=== PATIENT | male | born 1955 | race Caucasian/White ===

== ENCOUNTER 2019-09-20 21:43 | Inpatient (IN) | payer BC ==
[~2019-09-20] VITALS: Ht 188 cm; Wt 95.3 kg
--- NOTE | 2019-09-20 22:06 | NUR ---
PT BIBPA. PER PA C/O ABN LAB HGB 5.7 AT FACILITY. UPON ASSESSMENT TACHYCARDIC-130S. PT ON VENT, HAS G TUBE, AND MINIMAL CONVULSION NOTED. RT AT BEDSIDE. PLACED ON MONITOR AND PULSE OX. VSS. NO ACUTE DISTRESS NOTED. AWAITING MD FOR EVAL.
--- NOTE | 2019-09-20 22:15 | NUR ---
AC 16 VT 400 02 40 PEEP 5
[2019-09-20] MEDS ORDERED: IPRATROPIUM NEB FS 0.5 MG/2.5 ML AMPUL.NEB NEB ONE (22:30)
[2019-09-20] MEDS ORDERED: ALBUTEROL FS 2.5 MG/0.5 ML VIAL.NEB NEB ONE (22:30)
--- NOTE | 2019-09-20 22:33 | NUR ---
LAB AT BEDSIDE FOR CULTURES
[2019-09-20] MEDS ORDERED: IPRATROPIUM NEB FS 0.5 MG/2.5 ML AMPUL.NEB ONE (22:36)
[2019-09-20] MEDS ORDERED: ALBUTEROL FS 2.5 MG/0.5 ML VIAL.NEB ONE (22:36)
--- NOTE | 2019-09-20 22:47 | NUR ---
PT RECIEVING BREATHING TREATMENT.
[2019-09-20 22:50] LABS: BASOPHILS # (AUTO) 0.1 /CMM (0.0-0.2); BASOPHILS % (AUTO) 1.1 % (0.0-2.0); EOSINOPHILS % (AUTO) 2.3 % (0.0-6.0); HEMATOCRIT 22 % (39-51); HEMOGLOBIN 7.1 g/dL (13.5-17.5); LYMPHOCYTES # (AUTO) 2.4 /CMM (0.8-4.8); LYMPHOCYTES % (AUTO) 22.4 % (20.0-44.0); MEAN CORPUSCULAR HGB CONC 32 g/dl (31.0-36.0); MEAN CORPUSCULAR VOLUME 88 fL (80-96); MONOCYTES # (AUTO) 0.5 /CMM (0.1-1.30); MONOCYTES % (AUTO) 4.4 % (2.0-12.0); NEUTROPHILS # (AUTO) 7.4 /CMM (1.8-8.9); NEUTROPHILS % (AUTO) 69.8 % (43.0-81.0); PLATELET COUNT (AUTO) 499 /CMM (150-450); RED BLOOD CELL COUNT(AUTO) 2.51 MIL/uL (4.5-6.0); WHITE BLOOD COUNT (AUTO) 10.6 K/uL (4.3-11.0)
[2019-09-20 23:00] LABS: CALCIUM, SERUM 8.7 mg/dL (8.5-10.1); CREATININE 0.6 mg/dL (0.6-1.3); POTASSIUM 4.1 mmol/L (3.5-5.1)
[2019-09-20] MEDS ORDERED: ACETAMINOPHEN 650 MG/SUPP.RECT RC ONE (23:00)
[2019-09-20] MEDS ORDERED: IV NS 0.9% 1,000 ML BAG IV ONE (23:00)
[2019-09-20 23:06] LABS: ALBUMIN 1.6 g/dL (3.4-5.0); BILIRUBIN,TOTAL 0.2 mg/dL (0.2-1.0); TOTAL PROTEIN, SERUM 7.9 g/dL (6.4-8.2)
[2019-09-20] MEDS ORDERED: LORAZEPAM INJ 2 MG/ML VIAL ONE (23:18)
[2019-09-20] MEDS ORDERED: LORAZEPAM INJ 2 MG/ML VIAL IV ONE (23:30)
[2019-09-21] VITALS (7 sets, daily range): BP systolic 105–134; BP diastolic 54–81
--- NOTE | 2019-09-21 00:14 | NUR ---
ER TALKING TO [facility] REGARD[facility] PT ADMISSION.
--- NOTE | 2019-09-21 00:31 | NUR ---
TELE 116-1
--- NOTE | 2019-09-21 00:39 | NUR ---
REPORT GIVEN TO KEYLA MARTINEZ
[2019-09-21] MEDS ORDERED: Z GUARD REMEDY 2 OZ OINT TP PRN (01:00)
[2019-09-21] MEDS ORDERED: MAG HYDROX/AL HYDROX/SIMETH 30 ML UDC PO PRN (01:00)
[2019-09-21] MEDS ORDERED: MAGNESIUM HYDROXIDE 30 ML UDC PO PRN (01:00)
[2019-09-21] MEDS ORDERED: LORAZEPAM INJ 2 MG/ML VIAL IV PRN (01:00)
[2019-09-21] MEDS ORDERED: HYDROCODONE/APAP 5/325MG 1 EACH TABLET PO PRN (01:00)
[2019-09-21] MEDS ORDERED: MORPHINE SULFATE INJ 2 MG/ML DISP.SYRIN IV PRN (01:00)
[2019-09-21] MEDS ORDERED: ACETAMINOPHEN 325 MG TABLET PO PRN (01:00)
[2019-09-21] MEDS ORDERED: ONDANSETRON HCL/PF 4 MG/2 ML VIAL IVP PRN (01:00)
[2019-09-21] MEDS ORDERED: ZOLPIDEM TARTRATE 5 MG TABLET PO PRN (01:00)
--- NOTE | 2019-09-21 01:15 | NUR ---
BOND ANALYST OPENING NOTE PATIENT ARRIVED TO UNIT FROM ER AT THIS TIME VIA GURNEY. PATIENT IS OBTUNDED. VENT DEPENDANT. BREATHING EVEN AND NON LABORED. NO SOB NOTED AT THIS TIME. ON MAN. PATIENT HAS MULTIPLE PRESSURE SORES NOTED ON BILATERAL HEELS, BACK OF HEAD, SACRUM, RIGHT LOWER LEG, AND RIGHT GROIN AREA. WOUND DRESSING CHANGES DONE. IN NO APPARENT DISTRESS NOTED AT THIS TIME. BED IS LOWERED TO LOW POSITION FOR SAFETY. WILL CONTINUE TO MONITOR.
--- NOTE | 2019-09-21 01:18 | NUR ---
PT TRANSFERED PER ACLS PROTOCOL
[2019-09-21] MEDS: IV D5/0.45 NACL 1,000 ML IV PRN ×2 (02:28→15:29)
--- NOTE | 2019-09-21 03:21 | NUR ---
RT NOTE PATIENT RECEIVED IN STABLE CONDITION. PATIENT TOLERATING CURRENT ORDERED VENT SETTINGS, NO SIGNS OF RESPIRATORY DISTRESS NOTED. ALARMS ARE SET AND AUDIBLE. TRACH IS PATENT AND SECURE. MECHANICAL VENT IS PLUGGED INTO RED OUTLET. EMERGENCY EQUIPMENT AT PATIENT BEDSIDE. WILL CONTINUE TO MONITOR PATIENT
--- NOTE | 2019-09-21 06:40 | NUR ---
INTERFACE DEVELOPER CLOSING NOTE PATIENT IS IN BED RESTING WITH HOB ELEVATED. PATIENT IS NON VERBAL. ON VENT. PATIENT IS KEPT NPO ORDERED. IV HYDRATION ON AND RUNNING. RIGHT UPPER ARM PICC LINE KEPT PATENT. PATIENT IS KEPT CLEAN, DRY, AND COMFORTABLE. WILL ENDORSE TO AM SHIFT RN FOR CONTINUATION OF CARE.
--- NOTE | 2019-09-21 07:15 | NUR ---
RN OPENING NOTES PATIENT IS IN BED RESTING WITH HOB ELEVATED. PATIENT IS NON VERBAL ON VENT WITH O2 SATURATION AT 95%. PATIENT IS NPO ORDERED. RECEIVED REPORT FROM RADIOLOGY PHYSICIAN ASSISTANT RN WILL CONTINUE TO MONITOR.
[2019-09-21 07:24] LABS: BASOPHILS % (AUTO) 0.4 % (0.0-2.0); EOSINOPHILS % (AUTO) 1.3 % (0.0-6.0); HEMATOCRIT 22 % (39-51); HEMOGLOBIN 7.2 g/dL (13.5-17.5); LYMPHOCYTES # (AUTO) 1.4 /CMM (0.8-4.8); LYMPHOCYTES % (AUTO) 16.1 % (20.0-44.0); MEAN CORPUSCULAR HGB CONC 33 g/dl (31.0-36.0); MEAN CORPUSCULAR VOLUME 87 fL (80-96); MONOCYTES # (AUTO) 0.5 /CMM (0.1-1.30); NEUTROPHILS # (AUTO) 6.8 /CMM (1.8-8.9); NEUTROPHILS % (AUTO) 76.2 % (43.0-81.0); PLATELET COUNT (AUTO) 429 /CMM (150-450); RED BLOOD CELL COUNT(AUTO) 2.53 MIL/uL (4.5-6.0); WHITE BLOOD COUNT (AUTO) 8.9 K/uL (4.3-11.0)
[2019-09-21 07:44] LABS: BILIRUBIN,TOTAL 0.2 mg/dL (0.2-1.0); CALCIUM, SERUM 8.6 mg/dL (8.5-10.1); CREATININE 0.6 mg/dL (0.6-1.3); MAGNESIUM 2.1 mg/dL (1.8-2.4); PHOSPHORUS 2.8 mg/dL (2.5-4.9); POTASSIUM 3.7 mmol/L (3.5-5.1); TOTAL PROTEIN, SERUM 7.1 g/dL (6.4-8.2)
[2019-09-21 07:48] LABS: ALBUMIN 1.3 g/dL (3.4-5.0)
[2019-09-21 07:49] LABS: THYROID STIMULATING HORMONE 1.137 uIU/mL (0.358-3.74)
[2019-09-21] MEDS: PANTOPRAZOLE 40 MG VIAL IV SCH (08:37)
[2019-09-21] MEDS: LORAZEPAM INJ 2 MG/ML VIAL IV PRN (08:47)
[2019-09-21] MEDS ORDERED: MERO500V3 IV (09:19)
[2019-09-21] MEDS ORDERED: MULT-439 GT (09:19)
[2019-09-21] MEDS ORDERED: AMIN887L GT (09:19)
[2019-09-21] MEDS ORDERED: NUT.237L31 (09:19)
[2019-09-21] MEDS ORDERED: VANC1FRO2 IV (09:19)
[2019-09-21] MEDS ORDERED: ACET-868 GT (09:19)
[2019-09-21] MEDS ORDERED: BISA10SU11 RC (09:19)
[2019-09-21] MEDS ORDERED: ALBU2.5V13 IH (09:19)
[2019-09-21] MEDS ORDERED: NUTR1PAC14 GT (09:19)
[2019-09-21] MEDS ORDERED: CRAN3875 GT (09:19)
[2019-09-21] MEDS ORDERED: CHLO473M3 MM (09:19)
[2019-09-21] MEDS ORDERED: AMLO10TA4 GT (09:19)
[2019-09-21] MEDS ORDERED: INSU100V39 SQ (09:19)
[2019-09-21] MEDS ORDERED: ACET-2030 GT (09:19)
[2019-09-21] MEDS ORDERED: MAGN400O6 GT (09:19)
[2019-09-21] MEDS ORDERED: LEVE100S GT (09:19)
[2019-09-21] MEDS ORDERED: ALBU2.5V38 IH (09:19)
[2019-09-21] MEDS ORDERED: POLY17PO4 GT (09:19)
[2019-09-21] MEDS ORDERED: ASCO500C16 GT (09:19)
[2019-09-21] MEDS ORDERED: FAMO20TA8 GT (09:19)
[2019-09-21] MEDS ORDERED: VALP250S4 GT (09:19)
[2019-09-21] MEDS ORDERED: SENN-168 GT (09:19)
[2019-09-21] MEDS ORDERED: NA P133E RC (09:19)
[2019-09-21] MEDS ORDERED: ACET325T53 GT (09:19)
[2019-09-21] MEDS ORDERED: DOCU-141 GT (09:19)
[2019-09-21 11:59] LABS: APPEARANCE,URINE CLEAR (CLEAR); BILIRUBIN,URINE NEGATIVE (NEGATIVE); BLOOD, URINE NEGATIVE Ery/uL (NEGATIVE); COLOR,URINE YELLOW (YELLOW); KETONES,URINE NEGATIVE (NEGATIVE); LEUKOCYTE ESTERASE ,URINE NEGATIVE (NEGATIVE); NITRITE, URINE NEGATIVE (NEGATIVE); PROTEIN,URINE NEGATIVE (NEGATIVE); UGLUCOSE NEGATIVE (NEGATIVE); UROBILINOGEN,URINE 0.2 EU/dL (0.2)
[2019-09-21] MEDS ORDERED: POLYETHYLENE GLYCOL 3350 17 GM POWD.PACK GT PRN (13:00)
[2019-09-21] MEDS ORDERED: NA PHOS,M-B/NA PHOS,DI-BA 1 EA ENEMA RC PRN (13:00)
[2019-09-21] MEDS ORDERED: ACETAMINOPHEN 325 MG TABLET MC PRN (13:00)
[2019-09-21] MEDS ORDERED: MAGNESIUM HYDROXIDE 30 ML UDC GT PRN ×2 (13:00→13:16)
[2019-09-21] MEDS ORDERED: BISACODYL SUPP (10 MG) 10 MG/SUPP.RECT SUPP.RECT RC PRN (13:00)
[2019-09-21] MEDS ORDERED: ZOLPIDEM TARTRATE 5 MG TABLET GT PRN (13:14)
[2019-09-21] MEDS ORDERED: MAG HYDROX/AL HYDROX/SIMETH 30 ML UDC GT PRN (13:15)
[2019-09-21] MEDS ORDERED: HYDROCODONE/APAP 5/325MG 1 EACH TABLET GT PRN (13:16)
[2019-09-21] MEDS: VALPROIC ACID 250 MG/5 ML UDC GT SCH ×2 (13:28→16:31)
[2019-09-21] MEDS: ACETAMINOPHEN 650 MG/20.3 ML UDC PO PRN ×2 (13:35→21:23)
[2019-09-21] MEDS ORDERED: FEE PK DOSING 1 MIN EA MC ONE (13:50)
[2019-09-21] MEDS ORDERED: GLUCERNA 1.2 1,000 ML BOTTLE NG PRN (14:00)
[2019-09-21] MEDS: ALBUTEROL FS 2.5 MG/3 ML VIAL.NEB IH PRN (14:23)
[2019-09-21] MEDS: ALBUTEROL FS 2.5 MG/0.5 ML VIAL.NEB IH SCH ×2 (14:23→19:48)
[2019-09-21] MEDS ORDERED: PIPERACILLIN /TAZOBACTAM 3.375 G in IV D5W 50 ML IV ONE (15:00)
[2019-09-21] MEDS: VANCOMYCIN 1.25 GM in IV D5W 250 ML IV SCH (16:30)
[2019-09-21] MEDS: CHLORHEXIDINE GLUCONATE 15 ML UDC MM SCH (16:30)
[2019-09-21] MEDS: LEVETIRACETAM SOL (5 ML) 100 MG/ML UDC GT SCH (16:31)
[2019-09-21] MEDS ORDERED: Medication Not On Formulary EA (Cran/Vitc/Mannose/Inulin/Brom (Uti-Stat Liquid) 30 ML) GT SCH (17:00)
[2019-09-21] MEDS ORDERED: ARGININE/GLUTAMINE/CALCIUM BMB 1 EACH POWD.PACK GT SCH (17:00)
--- NOTE | 2019-09-21 17:27 | NUR ---
RT NOTE RECEIVED PATIENT ON MECHANICAL VENT WITH ORDERED SETTING. ALARMS ON AND AUDIBLE. VENT PLUGGED IN TO RED OUTLET. TRACH TUBE IN PLACE PATENT AND SECURED WITH TRACH TIE. AMBU BAG AND BACK UP TRACH BY THE BEDSIDE. SX COPIOUS AMOUNT OF THICK YELLOW SECRETIONS. NO RESP DISTRESS AT THIS TIME. WILL CONTINUE TO MONITOR.
--- NOTE | 2019-09-21 19:29 | NUR ---
RN CLOSING NOTES PATIENT IS IN BED RESTING WITH HOB ELEVATED. PATIENT IS NON VERBAL ON VENT WITH O2 SATURATION AT 100%. PATIENT IS RECEIVING G-TUBE FEEDING CURRENTLY ON 30 MLS/HR ORDERED. PT ON A AIR MATTRESS AND MAN DRAINING TO GRAVITY.REPORT GIVEN TO QUALITY ENG RN FOR MOISES.
--- NOTE | 2019-09-21 19:30 | NUR ---
DIRECTOR OF PLACEMENT CLOSING NOTE PATIENT IS IN BED RESTING OBTUNDED WITH HOB ELEVATED. ON VENT AC SETTINGS WELL TOLERATED BY PTS NO SOB NO DISTRESS NOTED ,BREATHING EVEN AND UNLABORED PATIENT IS KEPT NPO ORDERED. IV HYDRATION ON AND RUNNING. RIGHT UPPER ARM PICC LINE KEPT PATENT. PATIENT IS KEPT CLEAN, DRY, AND COMFORTABLE. F/C INTACT AND PATENT DRAINING WITH YELLOWISH URINE OUTPUT , ALL DUE MEDS GIVEN ASD ORDERED, NO ASE NOTED , GT FEEDING OF GLUCERNA 1.2 AT 30CC/HR INFUSING TOLERATING WELL NO RESIDUAL NOTED . V/S STABLE AFEBRILE , TURN AND REPOSITION Q 2HRS ,SUCTION SECRETION DONE, HOB ELEVATED AT ALL TIMES FOR ASPIRATION PRECAUTION .WILL CONTINUE TO MONITOR PTS . Addendum: 09/22/19 at 0630 by JOSE RAFAEL HINOJOSA RN DIRECTOR OF PLACEMENT OPENING NOTES NOT CLOSING NOTES. Addendum: 09/22/19 at 0638 by JOSE RAFAEL HINOJOSA RN THIS IS DIRECTOR OF PLACEMENT OPENING NOTES NOT TELE CLOSING NOTES
[2019-09-21] MEDS: SENNOSIDES 8.6 MG TABLET GT SCH (21:22)
[2019-09-21] MEDS: PIPERACILLIN /TAZOBACTAM 3.375 G in IV D5W 100 ML IV SCH (21:23)
[2019-09-22] VITALS (12 sets, daily range): BP systolic 98–117; BP diastolic 68–82
[2019-09-22] MEDS: ALBUTEROL FS 2.5 MG/0.5 ML VIAL.NEB IH SCH ×4 (01:31→19:38)
[2019-09-22] MEDS: VANCOMYCIN 1.25 GM in IV D5W 250 ML IV SCH ×2 (04:10→16:25)
--- NOTE | 2019-09-22 04:54 | NUR ---
RT NOTE Pt rec'd trached on [facility] vent on AC mode. Pt shows no signs of resp distress or sob. Trach is patent and secured. Pt sx'd for mod amt of pale yellow secretions. Alarms are set and audible. Vent plugged into red outlet. Ambu bag bedside. Will continue to monitor. Addendum: 09/22/19 at 0454 by NAHUM GUO RT Amended: Links added.
[2019-09-22] MEDS: PIPERACILLIN /TAZOBACTAM 3.375 G in IV D5W 100 ML IV SCH ×3 (05:10→22:13)
--- NOTE | 2019-09-22 06:38 | NUR ---
FUNERAL SERVICE APPRENTICE NOTES PTS REMAINS ON VENTILATOR WELL TOLERATED , NO SOB NO DISTRESS NOTED , NO MOISES NOTED AT THIS TIME V/S STABLE AFEBRILE, WILL ENDORSE TO RN DAY SHIFT FOR CONTINUITY OF CARE.
[2019-09-22 07:35] LABS: BASOPHILS % (AUTO) 0.3 % (0.0-2.0); EOSINOPHILS % (AUTO) 2.2 % (0.0-6.0); LYMPHOCYTES # (AUTO) 1.1 /CMM (0.8-4.8); LYMPHOCYTES % (AUTO) 10.6 % (20.0-44.0); MEAN CORPUSCULAR HGB CONC 32 g/dl (31.0-36.0); MEAN CORPUSCULAR VOLUME 87 fL (80-96); MONOCYTES # (AUTO) 0.4 /CMM (0.1-1.30); MONOCYTES % (AUTO) 3.8 % (2.0-12.0); NEUTROPHILS # (AUTO) 8.6 /CMM (1.8-8.9); NEUTROPHILS % (AUTO) 83.1 % (43.0-81.0); PLATELET COUNT (AUTO) 364 /CMM (150-450); RED BLOOD CELL COUNT(AUTO) 2.13 MIL/uL (4.5-6.0); WHITE BLOOD COUNT (AUTO) 10.3 K/uL (4.3-11.0)
[2019-09-22 08:01] LABS: HEMATOCRIT 19 % (39-51)
[2019-09-22 08:05] LABS: CALCIUM, SERUM 8.1 mg/dL (8.5-10.1); CREATININE 0.7 mg/dL (0.6-1.3); POTASSIUM 3.5 mmol/L (3.5-5.1)
[2019-09-22] MEDS: FAMOTIDINE (20 MG) 20 MG TABLET GT SCH (08:49)
[2019-09-22] MEDS: CHLORHEXIDINE GLUCONATE 15 ML UDC MM SCH ×2 (08:49→17:48)
[2019-09-22] MEDS: PANTOPRAZOLE 40 MG VIAL IV SCH (08:49)
[2019-09-22] MEDS: PROSOURCE / PROSTAT (PYXIS) 30 ML UDC GT SCH (08:49)
[2019-09-22] MEDS: DOCUSATE SODIUM LIQ 100 MG/10 ML UDC GT SCH (08:49)
[2019-09-22] MEDS: MULTIVIT W/MINERALS 1 TAB TABLET GT SCH (08:49)
[2019-09-22] MEDS: ASCORBIC ACID 500 MG TABLET GT SCH (08:49)
[2019-09-22] MEDS: LEVETIRACETAM SOL (5 ML) 100 MG/ML UDC GT SCH ×2 (08:50→17:49)
[2019-09-22] MEDS: VALPROIC ACID 250 MG/5 ML UDC GT SCH ×3 (08:50→17:49)
[2019-09-22] MEDS: ACETAMINOPHEN 650 MG/20.3 ML UDC GT SCH (08:50)
[2019-09-22] MEDS: SILVER SULFADIAZINE CREAM 25 GM TUBE TP SCH (08:51)
[2019-09-22] MEDS ORDERED: DOCUSATE SODIUM 100 MG CAPSULE PO SCH (09:00)
[2019-09-22] MEDS ORDERED: ACETAMINOPHEN 325 MG TABLET MC SCH (09:00)
[2019-09-22] MEDS: IV D5/0.45 NACL 1,000 ML IV PRN (09:10)
[2019-09-22 10:17] LABS: EOSINOPHILS % (MANUAL) 5 % (0-4); LYMPHOCYTES % (MANUAL) 11 % (16-48); MONOCYTES % (MANUAL) 5 % (0-11.0); NEUTROPHILS % (MANUAL) 79 (42-76)
--- NOTE | 2019-09-22 16:45 | NUR ---
RN NOTE: SisterSusi was at the bedside and informed her about the update regarding the patient's condition and plan of care. She was requesting for a special mattress that has an alternating pressure. Patient was currently on [facility] 1st mattress and pending wound consultation. Informed consent for the serial debridement of the (B) heels were signed by the sisterSusi. Informed consent filed to patient's chart.
--- NOTE | 2019-09-22 17:30 | NUR ---
RN NOTE: Occult blood stool was sent to lab per MD order.
--- NOTE | 2019-09-22 19:21 | NUR ---
RN NOTE: Bedside report was given to JUAN Beltran for continuity of care. Patient was s/p 1 unit blood transfusion of PRBC per Dr. Rodriguez's order. AM labs were ordered for tomorrow.
--- NOTE | 2019-09-22 19:30 | NUR ---
AIR CREW SUPERVISOR NOTES PATIENT IS IN BED RESTING OBTUNDED WITH HOB ELEVATED. ON VENT AC SETTINGS WELL TOLERATED BY PTS NO SOB NO DISTRESS NOTED ,BREATHING EVEN AND UNLABORED PATIENT IS KEPT NPO ORDERED. IV HYDRATION ON AND RUNNING. RIGHT UPPER ARM PICC LINE KEPT PATENT. PATIENT IS KEPT CLEAN, DRY, AND COMFORTABLE. F/C INTACT AND PATENT DRAINING WITH YELLOWISH URINE OUTPUT , ALL DUE MEDS GIVEN ASD ORDERED, NO ASE NOTED , INCREASE GT FEEDING OF GLUCERNA 1.2 AT 40CC/HR INFUSING TOLERATING WELL NO RESIDUAL NOTED . V/S STABLE ,WILL CONTINUE TO MONITOR PT.
[2019-09-22 20:17] LABS: OCCULT BLOOD STOOL NEGATIVE (NEGATIVE)
[2019-09-22] MEDS: SENNOSIDES 8.6 MG TABLET GT SCH (22:13)
[2019-09-22] MEDS: GLUCERNA 1.2 1,000 ML BOTTLE NG PRN (22:20)
[2019-09-23] VITALS (13 sets, daily range): BP systolic 108–141; BP diastolic 2–91
--- NOTE | 2019-09-23 | NUR ---
ASPHALT LAYER NOTES SPUTUM CX ,AND RAPID INFLUENZA SPECIMEN COLLECTED ORDERED , LABORATORY CALLUM MADE AWARE TO RESEARCH PROGRAM COORDINATOR SPECIMEN .ORDER NOTED AND CARRIED OUT. GT FEEDING GLUCERNA 1.2 INCREASE TO 60CC/HR WILL TOLERATED NO RESIDUAL NOTED. WILL CONTINUE TO MONITOR PT.
[2019-09-23] MEDS: ALBUTEROL FS 2.5 MG/0.5 ML VIAL.NEB IH SCH ×4 (01:44→19:49)
[2019-09-23] MEDS: VANCOMYCIN 1.25 GM in IV D5W 250 ML IV SCH (03:28)
[2019-09-23] MEDS: PIPERACILLIN /TAZOBACTAM 3.375 G in IV D5W 100 ML IV SCH ×3 (05:14→23:31)
--- NOTE | 2019-09-23 06:32 | NUR ---
STEAM CLEAN MACHINE OPERATOR NOTES PTS REMAINS ON VENTILATOR WELL TOLERATED NO SOB NO DISTRESS NOTED SPECIMEN FOR SACRLAL WOUND CULTURE COLLECTED , PTS IS STABLE AFEBRILE CONT ON GT FEEDING WELL TOLERATED INFUSING WELL NO RESIDUAL NOTED.WILL ENDORSE TO RN DAY SHIFT FOR CONTINUITY OF CARE.
--- NOTE | 2019-09-23 08:00 | NUR ---
RN NOTES RECEIVED PATIENT IS IN BED, OBTUNDED WITH HOB ELEVATED. PATIENT HAS JITTERY MOVEMENT ON UPPER ABDOMEN, ON VENT AC SETTINGS WELL TOLERATED BY PTS NO SOB NO DISTRESS NOTED ,BREATHING EVEN AND UNLABORED . IV HYDRATION ON RIGHT UA PICC LINE INTACT D51/2 NS AT 75 ML/HR RUNNING. PATIENT IS KEPT CLEAN, DRY, AND COMFORTABLE. F/C INTACT AND PATENT DRAINING WITH YELLOWISH URINE OUTPUT , ALL DUE MEDS GIVEN VIA GT INTACT, RESIDUAL AND PLACEMENT CHECKED. GT FEEDING OF GLUCERNA 1.2 AT 65 CC/HR INTACT CC/HR INFUSING TOLERATING, NO RESIDUAL NOTED . V/S STABLE AFEBRILE , TURN AND REPOSITION Q 2HRS ,SUCTION SECRETION DONE, HOB ELEVATED AT ALL TIMES FOR ASPIRATION PRECAUTION .WILL CONTINUE TO MONITOR.
[2019-09-23 08:54] LABS: CALCIUM, SERUM 8.1 mg/dL (8.5-10.1); CREATININE 0.6 mg/dL (0.6-1.3); MAGNESIUM 1.9 mg/dL (1.8-2.4); PHOSPHORUS 3.3 mg/dL (2.5-4.9)
[2019-09-23] MEDS: VALPROIC ACID 250 MG/5 ML UDC GT SCH ×3 (10:08→17:54)
[2019-09-23] MEDS: DOCUSATE SODIUM LIQ 100 MG/10 ML UDC GT SCH (10:09)
[2019-09-23] MEDS: CHLORHEXIDINE GLUCONATE 15 ML UDC MM SCH ×2 (10:14→17:54)
[2019-09-23] MEDS: PANTOPRAZOLE 40 MG VIAL IV SCH (10:14)
[2019-09-23] MEDS: ACETAMINOPHEN 650 MG/20.3 ML UDC GT SCH (10:14)
[2019-09-23] MEDS: LEVETIRACETAM SOL (5 ML) 100 MG/ML UDC GT SCH ×2 (10:14→17:54)
[2019-09-23] MEDS: MULTIVIT W/MINERALS 1 TAB TABLET GT SCH (10:15)
[2019-09-23] MEDS: FAMOTIDINE (20 MG) 20 MG TABLET GT SCH (10:15)
[2019-09-23] MEDS: ASCORBIC ACID 500 MG TABLET GT SCH (10:15)
[2019-09-23] MEDS: PROSOURCE / PROSTAT (PYXIS) 30 ML UDC GT SCH (10:17)
[2019-09-23] MEDS: SILVER SULFADIAZINE CREAM 25 GM TUBE TP SCH (10:18)
[2019-09-23] MEDS: IV D5/0.45 NACL 1,000 ML IV PRN (10:46)
[2019-09-23 16:20] LABS: BASOPHILS % (AUTO) 0.4 % (0.0-2.0)
[2019-09-23 16:25] LABS: EOSINOPHILS % (AUTO) 3.6 % (0.0-6.0); LYMPHOCYTES # (AUTO) 1.2 /CMM (0.8-4.8); LYMPHOCYTES % (AUTO) 18.5 % (20.0-44.0); MEAN CORPUSCULAR HGB CONC 33 g/dl (31.0-36.0); MEAN CORPUSCULAR VOLUME 86 fL (80-96); MONOCYTES # (AUTO) 0.4 /CMM (0.1-1.30); MONOCYTES % (AUTO) 5.5 % (2.0-12.0); NEUTROPHILS # (AUTO) 4.7 /CMM (1.8-8.9); PLATELET COUNT (AUTO) 314 /CMM (150-450); WHITE BLOOD COUNT (AUTO) 6.6 K/uL (4.3-11.0)
[2019-09-23 16:34] LABS: HEMATOCRIT 18 % (39-51)
--- NOTE | 2019-09-23 16:40 | NUR ---
rn notes get call from lab critical hemoglobin 6.0, and hematocrit 18, called Dr Rodriguez and get order STAT 2.0 units of TST RBC. ORDER TAKEN AND CARRIED OUT.
[2019-09-23] MEDS: VANCOMYCIN 1 GM in IV D5W 250 ML IV SCH (17:55)
--- NOTE | 2019-09-23 17:55 | NUR ---
rn notes vancomycin not administered because vancomycin through , administered scheduled medications via GT 75ml/hr intact, HOB keep elevated for aspiration precaution, assist patient turn and reposition q 2 hr.
[2019-09-23] MEDS: LORAZEPAM INJ 2 MG/ML VIAL IV PRN (18:28)
--- NOTE | 2019-09-23 18:28 | NUR ---
rn notes administered ativan 0.5 mg/ml iv push for upper body jitteriness movement, v/s taken bp-118/67, p-96, continued monitoring.
--- NOTE | 2019-09-23 18:30 | NUR ---
RN NOTES PATIENT IN THE BED, MEDICATION WERE ADMINISTERED FOR JITTERINESS MOVEMENT EFFECTIVE, V/S STABLE. ASSIST PATIENT TURN AND REPOSTION Q 2 HR, ELEVATED LOWER EXTREMITIES AND ARMS BECAUSE OF SWOLLEN USING PILLOWS. INFUSING GLUCERNA 1.2 80 ML/HR INTACT, HOB ELEVATED FOR ASPIRATION PRECAUTION, INFUSING ZOSYN 25 ML/HR ON RIGHT PICC LINE INTACT, ASSIST TURN AND REPOSTION Q 2 HR. ENDORSED ONCOMING NURSE FOLLOW PLAN OF CARE.
[2019-09-23] MEDS: GLUCERNA 1.2 1,000 ML BOTTLE NG PRN (18:36)
[2019-09-23 19:39] LABS: EOSINOPHILS % (MANUAL) 6 % (0-4); LYMPHOCYTES % (MANUAL) 14 % (16-48); MONOCYTES % (MANUAL) 3 % (0-11.0); NEUTROPHILS % (MANUAL) 77 (42-76)
--- NOTE | 2019-09-23 20:31 | NUR ---
RN NOTES, PATIENT IN BED, ON MECHANICAL VENTILATOR , TOLERATED SETTINGS WELL, WITH STABLE VS, ORDER O INFUSED BLOOD AND BLOOD STARTED AT THIS TIME, PATIENT TOLERATED WELL, WILL ADMINISTER PROTOCOL VIA DICKSON PICC LINE, GT IN PLACED INFUSING GLUCERNA 1.2 80 ML/HR, MINIMAL RESIDUA NOTED, HOB ELEVATED FOR ASPIRATION PRECAUTION, REPOSITIONED AT THIS TIME, ALL SAFETY MEASURES IN PLACED, S/R OF BED ORDERED, NOTED TWITCHING AT THIS TIME AGAIN, INFORMED MEET MORNING SHOW NEWSCAST PRODUCER AND RECEIVED A NEW ORDER FOR ADDITIONAL 1MG ATIVAN IVP NOW, AND F/U IN THE MORNING FOR NEURO CONSULT, ALSO TO CONTINUE INFUSION OF BLOOD AND ATIVAN Q4HRS PREVIOUS ORDER, WILL CONTINUE TO MONITOR CLOSELY.
[2019-09-23] MEDS ORDERED: LORAZEPAM INJ 2 MG/ML VIAL IV ONE (20:37)
[2019-09-23] MEDS: SENNOSIDES 8.6 MG TABLET GT SCH (21:32)
[2019-09-24] VITALS (11 sets, daily range): BP systolic 110–136; BP diastolic 65–91
[2019-09-24] MEDS: LORAZEPAM INJ 2 MG/ML VIAL IV PRN ×3 (00:30→12:48)
[2019-09-24] MEDS: ALBUTEROL FS 2.5 MG/0.5 ML VIAL.NEB IH SCH ×4 (01:19→19:32)
[2019-09-24] MEDS: VANCOMYCIN 1 GM in IV D5W 250 ML IV SCH (06:00)
[2019-09-24] MEDS: PIPERACILLIN /TAZOBACTAM 3.375 G in IV D5W 100 ML IV SCH ×3 (06:20→21:20)
--- NOTE | 2019-09-24 06:41 | NUR ---
RN NOTES, PATIENT IN BED, ON MECHANICAL VENTILATOR , TOLERATED SETTINGS WELL, WITH STABLE, S/P 2 UNITS OF PRBC INFUSED ORDERED, PATIENT TOLERATED WELL, NO MORE TWITCHING THE REST OF THE NIGHT, HOB ELEVATED FOR ASPIRATION PRECAUTION, ALL SAFETY MEASURES IN PLACED, S/R OF BED ORDERED, VANCOMYCIN IV NOT ADMINISTERED DUE TO VANCOMYCIN THROUGH , WILL ENDORSE CONTINUITY OF CARE.
--- NOTE | 2019-09-24 07:37 | NUR ---
RN opening notes Patient received on ventilator, no sob noted, patient shows no s/s of pain at this time. Ventilator plugged to the wall outlet for o2 and power. Glucerna 1.2 @ 30 ml per hour running, goal is for 80 ml per hour. DICKSON picc line, d5 1/2 NS @ 75 ml per hour. Bed at the lowest setting, call light within reach, side rails up x2.
[2019-09-24] MEDS: DOCUSATE SODIUM LIQ 100 MG/10 ML UDC GT SCH (08:07)
[2019-09-24] MEDS: LEVETIRACETAM SOL (5 ML) 100 MG/ML UDC GT SCH ×2 (08:07→16:26)
[2019-09-24] MEDS: VALPROIC ACID 250 MG/5 ML UDC GT SCH ×3 (08:07→16:26)
[2019-09-24] MEDS: PANTOPRAZOLE 40 MG VIAL IV SCH (08:07)
[2019-09-24] MEDS: MULTIVIT W/MINERALS 1 TAB TABLET GT SCH (08:07)
[2019-09-24] MEDS: FAMOTIDINE (20 MG) 20 MG TABLET GT SCH (08:07)
[2019-09-24] MEDS: ACETAMINOPHEN 650 MG/20.3 ML UDC GT SCH (08:07)
[2019-09-24] MEDS: ASCORBIC ACID 500 MG TABLET GT SCH (08:08)
[2019-09-24] MEDS: CHLORHEXIDINE GLUCONATE 15 ML UDC MM SCH ×2 (08:08→16:26)
[2019-09-24] MEDS: PROSOURCE / PROSTAT (PYXIS) 30 ML UDC GT SCH ×3 (08:08→16:26)
[2019-09-24] MEDS: SILVER SULFADIAZINE CREAM 25 GM TUBE TP SCH ×2 (08:08→12:24)
[2019-09-24] MEDS: GLUCERNA 1.2 1,000 ML BOTTLE NG PRN (10:29)
[2019-09-24] MEDS ORDERED: DAKINS QUARTER STRENGTH (0.125%) 480 ML BOTTLE TOP STA (12:13)
[2019-09-24 17:26] LABS: BASOPHILS % (AUTO) 0.3 % (0.0-2.0); EOSINOPHILS % (AUTO) 3.9 % (0.0-6.0); HEMATOCRIT 25 % (39-51); HEMOGLOBIN 8.3 g/dL (13.5-17.5); LYMPHOCYTES # (AUTO) 1.2 /CMM (0.8-4.8); LYMPHOCYTES % (AUTO) 21.1 % (20.0-44.0); MEAN CORPUSCULAR HGB CONC 33 g/dl (31.0-36.0); MEAN CORPUSCULAR VOLUME 86 fL (80-96); MONOCYTES # (AUTO) 0.3 /CMM (0.1-1.30); MONOCYTES % (AUTO) 5.2 % (2.0-12.0); NEUTROPHILS # (AUTO) 3.9 /CMM (1.8-8.9); NEUTROPHILS % (AUTO) 69.5 % (43.0-81.0); PLATELET COUNT (AUTO) 297 /CMM (150-450); RED BLOOD CELL COUNT(AUTO) 2.89 MIL/uL (4.5-6.0); WHITE BLOOD COUNT (AUTO) 5.6 K/uL (4.3-11.0)
[2019-09-24 17:38] LABS: CALCIUM, SERUM 8.4 mg/dL (8.5-10.1); CREATININE 0.5 mg/dL (0.6-1.3); POTASSIUM 3.7 mmol/L (3.5-5.1)
--- NOTE | 2019-09-24 17:59 | NUR ---
rn closing notes Patient remains on a ventilator, portex 7. Glucerna feeding 1.2 @ 80 ml per hour. R UA picc line with D5 1/2 NS@ 75 ml per hour running. Ativan to be given for twitching. Vital signs stable, no sob noted, patient shows no s/s of pain at this time. Hemoglobin level at 8.3 today, no need for a blood transfusion. Bed at the lowest setting, call light within reach, side rails up x2.
[2019-09-24] MEDS: ALBUTEROL FS 2.5 MG/3 ML VIAL.NEB IH PRN (19:31)
--- NOTE | 2019-09-24 19:45 | NUR ---
RN NOTES, PATIENT IN BED, ON MECHANICAL VENTILATOR , TOLERATED SETTINGS WELL, NSR IN TELE MONITOR WITH HR 70S AT THIS TIME, DICKSON PICC LINE IN PLACED, IVF INFUSING ORDERED, PATIENT TOLERATED WELL, GT IN PLACED INFUSING GLUCERNA 1.2 ORDERED, MINIMAL RESIDUAL NOTED, HOB ELEVATED FOR ASPIRATION PRECAUTION, REPOSITIONED AT THIS TIME, F/C IN PLACED DRAINING YELLOW COLOR URINE, DRY AND CLEAN, ALL SAFETY MEASURES IN PLACED, WILL CONTINUE TO MONITOR CLOSELY.
[2019-09-24] MEDS: SENNOSIDES 8.6 MG TABLET GT SCH (21:20)
[2019-09-24] MEDS: IV D5/0.45 NACL 1,000 ML IV PRN (23:54)
[2019-09-25] VITALS (8 sets, daily range): BP systolic 119–141; BP diastolic 72–92
[2019-09-25] MEDS: ALBUTEROL FS 2.5 MG/0.5 ML VIAL.NEB IH SCH ×4 (01:14→19:40)
[2019-09-25] MEDS: LORAZEPAM INJ 2 MG/ML VIAL IV PRN (04:23)
--- NOTE | 2019-09-25 04:25 | NUR ---
RN NOTES, PATIENT NOTED WITH TWITCHING AT THIS TIME, ATIVAN ADMINISTERED ORDERED, WILL CONTINUE TO MONITOR CLOSELY.
[2019-09-25] MEDS: PIPERACILLIN /TAZOBACTAM 3.375 G in IV D5W 100 ML IV SCH ×3 (05:03→21:56)
--- NOTE | 2019-09-25 06:49 | NUR ---
RN NOTES, PATIENT IN BED, ON MECHANICAL VENTILATOR , TOLERATED SETTINGS WELL, PATIENT TOLERATED WELL, NO MORE TWITCHING AFTER ATIVAN ADMINISTERED THIS MORNING, BESIDES THAT NO SIGNIFICANT CHANGE IN CONDITION DURING THE NIGHT, HOB ELEVATED FOR ASPIRATION PRECAUTION, ALL SAFETY MEASURES IN PLACED, S/R OF BED ORDERED, WILL ENDORSE CONTINUITY OF CARE TO ONCOMING NURSE.
[2019-09-25] MEDS ORDERED: SILVER NITRATE APPLICATOR 1 EA BOX TP ONE (07:00)
--- NOTE | 2019-09-25 08:00 | NUR ---
TELE1/RN AM SHIFT OPENING NOTES RECEIVED PT ASLEEP IN BED, PT NON-VERBAL, OCCASIONALLY OPEN EYES. NO ACUTE CHANGE OF CONDITION OR GRIMACING NOTED. PT ON VENTILATOR WITH RATES SET PRESCRIBED, SATURATING @ 95%, RESPIRATIONS EVEN & UNLABORED, LUNG SOUNDS DIMINISHED, SUCTIONED FOR AIRWAY CLEARANCE. WITH ON GOING IV INFUSION OF D51/2NS @ 75CC/HR, PICC LINE, PATENT WITH NO S/S OF INFECTION. GTF FEEDING ON GOING @ 80CC/HR, NO GASTRIC RESIDUAL NOTED, FLUSHED, PATENT. MAN CATHETER INTACT, NOTED WITH YELLOW URINE OUTPUT. PT IS COMFORTABLE, SCHEDULED AM MEDS TO BE GIVEN. CL WITHIN REACHED AND SAFETY MAINTAINED. ON GOING MONITORING.
[2019-09-25 08:23] LABS: CALCIUM, SERUM 8.4 mg/dL (8.5-10.1); CREATININE 0.7 mg/dL (0.6-1.3); POTASSIUM 3.7 mmol/L (3.5-5.1)
[2019-09-25 08:23] LABS: BASOPHILS % (AUTO) 0.6 % (0.0-2.0); EOSINOPHILS % (AUTO) 3.7 % (0.0-6.0); HEMATOCRIT 26 % (39-51); HEMOGLOBIN 8.7 g/dL (13.5-17.5); LYMPHOCYTES # (AUTO) 0.9 /CMM (0.8-4.8); LYMPHOCYTES % (AUTO) 16.9 % (20.0-44.0); MEAN CORPUSCULAR HGB CONC 34 g/dl (31.0-36.0); MEAN CORPUSCULAR VOLUME 86 fL (80-96); MONOCYTES # (AUTO) 0.4 /CMM (0.1-1.30); MONOCYTES % (AUTO) 7.1 % (2.0-12.0); NEUTROPHILS # (AUTO) 3.8 /CMM (1.8-8.9); NEUTROPHILS % (AUTO) 71.7 % (43.0-81.0); PLATELET COUNT (AUTO) 298 /CMM (150-450); RED BLOOD CELL COUNT(AUTO) 3.02 MIL/uL (4.5-6.0); WHITE BLOOD COUNT (AUTO) 5.3 K/uL (4.3-11.0)
[2019-09-25] MEDS: PROSOURCE / PROSTAT (PYXIS) 30 ML UDC GT SCH ×3 (08:43→18:02)
[2019-09-25] MEDS: GLUCERNA 1.2 1,000 ML BOTTLE NG PRN ×2 (08:43→23:27)
[2019-09-25] MEDS: CHLORHEXIDINE GLUCONATE 15 ML UDC MM SCH ×2 (08:43→18:02)
[2019-09-25] MEDS: LEVETIRACETAM SOL (5 ML) 100 MG/ML UDC GT SCH ×2 (08:44→18:02)
[2019-09-25] MEDS: MULTIVIT W/MINERALS 1 TAB TABLET GT SCH (08:44)
[2019-09-25] MEDS: ACETAMINOPHEN 650 MG/20.3 ML UDC GT SCH (08:44)
[2019-09-25] MEDS: FAMOTIDINE (20 MG) 20 MG TABLET GT SCH (08:44)
[2019-09-25] MEDS: VALPROIC ACID 250 MG/5 ML UDC GT SCH ×3 (08:44→18:02)
[2019-09-25] MEDS: DOCUSATE SODIUM LIQ 100 MG/10 ML UDC GT SCH (08:44)
[2019-09-25] MEDS: PANTOPRAZOLE 40 MG VIAL IV SCH (08:45)
[2019-09-25] MEDS: ASCORBIC ACID 500 MG TABLET GT SCH (08:46)
[2019-09-25] MEDS: SILVER SULFADIAZINE CREAM 25 GM TUBE TP SCH ×2 (08:46→08:47)
--- NOTE | 2019-09-25 12:00 | NUR ---
TELE1/RN NOON ROUNDS NO CHANGE OF CONDITION. PT TURNED AND REPOSITIONED. MONITORING CONTINUED.
--- NOTE | 2019-09-25 17:30 | NUR ---
TELE1/RN AFTERNOON ROUNDS PM CARE PROVIDED. NO CHANGE OF CONDITION.
[2019-09-25] MEDS: IV D5/0.45 NACL 1,000 ML IV PRN (18:13)
--- NOTE | 2019-09-25 19:50 | NUR ---
TELE1/RN AM SHIFT CLOSING NOTES ALL NEEDS MET. NO ACUTE CHANGE OF CONDITION NOTED DURING THE SHIFT. PT ENDORSED TO PM NURSE TO CONTINUE CARE. CL WITHIN REACHED AND SAFETY MAINTAINED.
--- NOTE | 2019-09-25 19:50 | NUR ---
DELI COOK NOTES PATIENT IS IN BED RESTING OBTUNDED WITH HOB ELEVATED. ON VENT AC SETTINGS WELL TOLERATED BY PTS NO SOB NO DISTRESS NOTED ,BREATHING EVEN AND UNLABORED .ON TELE MONITOR CURRENT READING SR 70'S-80'S RIGHT UPPER ARM PICC LINE KEPT PATENT.WITH ONGOING D5 1/2 NS @75CC/HR INFUSING WELL, PT ON GLUCERNA @80CC/HR VIA GTUBE, PATENT NO LEAKAGE, RESIDUAL CHECKED @ 20CC PATIENT IS KEPT CLEAN, DRY, AND COMFORTABLE. F/C INTACT AND PATENT DRAINING WITH YELLOWISH URINE OUTPUT SAFETY MEASURED MAINTAINED, BED ON LOWEST POSSIBLE POSITION, SIDE RAILS UP X3, CALL LIGHT WITHIN REACH WILL CONT. TO MONITOR
[2019-09-25] MEDS: SENNOSIDES 8.6 MG TABLET GT SCH (21:56)
[2019-09-26] VITALS (8 sets, daily range): BP systolic 131–140; BP diastolic 85–94
[2019-09-26] MEDS: ALBUTEROL FS 2.5 MG/0.5 ML VIAL.NEB IH SCH ×4 (02:24→20:00)
[2019-09-26] MEDS: PIPERACILLIN /TAZOBACTAM 3.375 G in IV D5W 100 ML IV SCH ×3 (05:24→21:09)
--- NOTE | 2019-09-26 07:18 | NUR ---
RN NOTES, PATIENT IN BED, ON MECHANICAL VENTILATOR , TOLERATED SETTINGS WELL,ON TELE MONITOR READING SR 80'S-90'S PATIENT TOLERATED WELL, NO SIGNIFICANT CHANGE IN CONDITION DURING THE NIGHT, HOB ELEVATED FOR ASPIRATION PRECAUTION, ALL SAFETY MEASURES IN PLACED, S/R OF BED ORDERED, WILL ENDORSE CONTINUITY OF CARE TO ONCOMING NURSE.
[2019-09-26 07:34] LABS: BASOPHILS % (AUTO) 0.3 % (0.0-2.0); EOSINOPHILS % (AUTO) 2.4 % (0.0-6.0); HEMATOCRIT 30 % (39-51); HEMOGLOBIN 9.8 g/dL (13.5-17.5); LYMPHOCYTES # (AUTO) 0.9 /CMM (0.8-4.8); LYMPHOCYTES % (AUTO) 13.9 % (20.0-44.0); MEAN CORPUSCULAR HGB CONC 33 g/dl (31.0-36.0); MEAN CORPUSCULAR VOLUME 86 fL (80-96); MONOCYTES # (AUTO) 0.5 /CMM (0.1-1.30); MONOCYTES % (AUTO) 7.1 % (2.0-12.0); NEUTROPHILS # (AUTO) 5.2 /CMM (1.8-8.9); NEUTROPHILS % (AUTO) 76.3 % (43.0-81.0); PLATELET COUNT (AUTO) 283 /CMM (150-450); RED BLOOD CELL COUNT(AUTO) 3.42 MIL/uL (4.5-6.0); WHITE BLOOD COUNT (AUTO) 6.8 K/uL (4.3-11.0)
--- NOTE | 2019-09-26 07:50 | NUR ---
RN NOTES PATIENT RECEIVED IN BED ON VENTILATOR TOLERATING WELL, BREATHING NORMAL NO SOB NOTED. ON TELE MONITOR READING SR. CONTINUES ON GT FEEDING GLUCERNA 1.2 @ 30ML/HR RUNNING WELL. HOB ELEVATED ALL THE TIMES FOR ASPIRATION PRECAUTIONS. DICKSON PICC LINE D5 1/2 NS @ 75 ML/HR. CALL LIGHT WITHIN REACH. BED LOCKED AND ON LOWEST POSITION, SIDE RAILS UP X2. ALL SAFETY MEASURES IN PLACE. WILL CONTINUE WITH PLAN OF CARE.
[2019-09-26] MEDS: ASCORBIC ACID 500 MG TABLET GT SCH (09:08)
[2019-09-26] MEDS: FAMOTIDINE (20 MG) 20 MG TABLET GT SCH (09:08)
[2019-09-26] MEDS: MULTIVIT W/MINERALS 1 TAB TABLET GT SCH (09:08)
[2019-09-26] MEDS: VALPROIC ACID 250 MG/5 ML UDC GT SCH ×3 (09:12→17:29)
[2019-09-26] MEDS: LEVETIRACETAM SOL (5 ML) 100 MG/ML UDC GT SCH ×2 (09:12→17:30)
[2019-09-26] MEDS: CHLORHEXIDINE GLUCONATE 15 ML UDC MM SCH ×2 (09:13→17:30)
[2019-09-26] MEDS: ACETAMINOPHEN 650 MG/20.3 ML UDC GT SCH (09:13)
[2019-09-26] MEDS: PANTOPRAZOLE 40 MG VIAL IV SCH (09:13)
[2019-09-26] MEDS: DOCUSATE SODIUM LIQ 100 MG/10 ML UDC GT SCH (09:18)
[2019-09-26] MEDS: SILVER SULFADIAZINE CREAM 25 GM TUBE TP SCH ×2 (09:18→09:19)
[2019-09-26] MEDS: PROSOURCE / PROSTAT (PYXIS) 30 ML UDC GT SCH ×3 (09:22→17:30)
[2019-09-26] MEDS: GLUCERNA 1.2 1,000 ML BOTTLE NG PRN (13:03)
[2019-09-26] MEDS: IV D5/0.45 NACL 1,000 ML IV PRN (13:05)
--- NOTE | 2019-09-26 19:10 | NUR ---
RN OPENING NOTES: RECEIVED PT IN BED, OBTUNDED. ON VENT, TOLERATING SETTINGS WELL. NO DISTRESS NOTED. ON TELE MONITOR SHOWING SR. ON GT FEEDING OF GLUCERNA 1.2 TOLERATING WELL. HAS DICKSON PICC LINE W/ D5 1/2 RUNNING AT 75ML/HR. HAS MAN, PATENT AND DRAINING. BED IN LOWEST AND LOCKED POSITION, CALL LIGHT WITHIN REACH. WILL CONTINUE TO MONITOR.
--- NOTE | 2019-09-26 20:00 | NUR ---
PRODUCT DEVELOPMENT TECHNICIAN NOTES PATIENT IS IN BED RESTING OBTUNDED WITH HOB ELEVATED. ON VENT AC SETTINGS WELL TOLERATED BY PTS NO SOB NO DISTRESS NOTED ,BREATHING EVEN AND UNLABORED PATIENT IS KEPT NPO ORDERED. IV HYDRATION ON AND RUNNING. RIGHT UPPER ARM PICC LINE KEPT PATENT. PATIENT IS KEPT CLEAN, DRY, AND COMFORTABLE. F/C INTACT AND PATENT DRAINING WITH YELLOWISH URINE OUTPUT , ALL DUE MEDS GIVEN ASD ORDERED, NO ASE NOTED , INCREASE GT FEEDING OF GLUCERNA 1.2 AT 80CC/HR INFUSING TOLERATING WELL NO RESIDUAL NOTED . V/S STABLE ,WILL CONTINUE TO MONITOR PT.
--- NOTE | 2019-09-26 20:10 | NUR ---
RN CLOSING NOTES PATIENT IN STABLE CONDITION, NO ACUTE CHANGES TO PATIENT CONDITION DURING MY SHIFT. ALL PATIENT NEEDS MET, PT KEPT CLEAN AND DRY, NO DISTRESS NOTED. ON VENTILATOR WITH SETTINGS TOLERATING WELL. SATURATION AT 100%. FEEDING IS RUNNING ORDERED, TOLERATING WELL, NO RESIDUAL NOTED. MAN REMAINED INTACT. DRAINING URINE. PATIENT SAFETY WAS MAINTAINED, CALL LIGHT WITHIN REACH, ENDORSED TO SLITTER HELPER NURSE TO CONTINUE CARE.
[2019-09-26] MEDS: SENNOSIDES 8.6 MG TABLET GT SCH (21:09)
[2019-09-27] VITALS: BP 131/85
[2019-09-27] MEDS: ALBUTEROL FS 2.5 MG/0.5 ML VIAL.NEB IH SCH ×4 (01:09→20:22)
--- NOTE | 2019-09-27 03:35 | NUR ---
RT NOTE TRANSFERRED PT FROM ROOM 117 T-1 TO 102 T-2 IN [place]. VENTILATOR IS PLUGGED INTO RED OUTLET AND ALARMS ARE SET/ON AND AUDIBLE. AMBUBAG AND B/U TRACH AT BEDSIDE. WILL CONTINUE TO MONITOR.
[2019-09-27] MEDS: IV D5/0.45 NACL 1,000 ML IV PRN ×2 (03:48→22:43)
[2019-09-27 04:00] VITALS: BP 132/80
[2019-09-27] MEDS: GLUCERNA 1.2 1,000 ML BOTTLE NG PRN ×2 (05:08→17:51)
[2019-09-27] MEDS: PIPERACILLIN /TAZOBACTAM 3.375 G in IV D5W 100 ML IV SCH ×2 (05:15→13:38)
--- NOTE | 2019-09-27 05:36 | NUR ---
CAMERA REPAIR TECHNICIAN NOTES PTS REMAINS ON VENTILATOR WELL TOLERATED NO SOB NO DISTRESS NOTED sating 100%, PTS V/S IS STABLE AFEBRILE CONT ON GT FEEDING WELL TOLERATED INFUSING WELL NO RESIDUAL NOTED.ON CONTACT ISOLATION ACINETOBACTER SPUTUM PRECAUTIONARY MEASURES OBSERVED AT ALL TIMES ,ALL NEEDS MEET .KEPT PTS CLEAN DRY AND COMFORTABLE WILL ENDORSE TO RN DAY SHIFT FOR CONTINUITY OF CARE.
[2019-09-27 06:25] LABS: BASOPHILS % (AUTO) 0.2 % (0.0-2.0); HEMATOCRIT 26 % (39-51); HEMOGLOBIN 8.6 g/dL (13.5-17.5); LYMPHOCYTES # (AUTO) 0.9 /CMM (0.8-4.8); LYMPHOCYTES % (AUTO) 14.1 % (20.0-44.0); MEAN CORPUSCULAR HGB CONC 33 g/dl (31.0-36.0); MEAN CORPUSCULAR VOLUME 87 fL (80-96); MONOCYTES # (AUTO) 0.6 /CMM (0.1-1.30); MONOCYTES % (AUTO) 9.3 % (2.0-12.0); NEUTROPHILS # (AUTO) 4.9 /CMM (1.8-8.9); NEUTROPHILS % (AUTO) 74.4 % (43.0-81.0); PLATELET COUNT (AUTO) 280 /CMM (150-450); RED BLOOD CELL COUNT(AUTO) 2.97 MIL/uL (4.5-6.0); WHITE BLOOD COUNT (AUTO) 6.5 K/uL (4.3-11.0)
--- NOTE | 2019-09-27 07:14 | NUR ---
RN OPENING NOTES RECEIVED PATIENT FROM PM NURSE, PATIENT IN STABLE CONDITION.PATIENT IS ON VENTILATOR WITH SETTING ORDERED TOLERATING WELL [id number]%. NO S/S OF RESPIRATORY DISTRESS NOTED. PATIENT OBTUNDED OPENS EYES. ON TELE MONITORING WITH SR RHYTHM NOTED WITH HR- 90'S. PATIENT HAS F/C IN PLACE INTACT DRAINING WELL. PATIENT ON BED WITH MULTIPLE WOUNDS PRESENT KEPT CLEAN AND DRY. CONTINUES ON GT FEEDING TOLERATING WELL NO RESIDUAL NOTED. DICKSON PICC LINE INTACT NO S/S OF INFECTION NOTED FLUSHED WELL. VITAL SIGNS WITHIN NORMAL LIMIT. SAFETY MAINTAINED CALL LIGHT WITHIN REACH. WILL CONT TO MONITOR.
[2019-09-27 08:00] VITALS: BP 128/92
[2019-09-27] MEDS: SILVER SULFADIAZINE CREAM 25 GM TUBE TP SCH ×2 (09:00→09:12)
[2019-09-27] MEDS: CHLORHEXIDINE GLUCONATE 15 ML UDC MM SCH ×2 (09:12→16:29)
[2019-09-27] MEDS: PROSOURCE / PROSTAT (PYXIS) 30 ML UDC GT SCH ×3 (09:12→16:28)
[2019-09-27] MEDS: DOCUSATE SODIUM LIQ 100 MG/10 ML UDC GT SCH (09:13)
[2019-09-27] MEDS: VALPROIC ACID 250 MG/5 ML UDC GT SCH ×3 (09:13→16:29)
[2019-09-27] MEDS: LEVETIRACETAM SOL (5 ML) 100 MG/ML UDC GT SCH ×2 (09:13→16:29)
[2019-09-27] MEDS: ACETAMINOPHEN 650 MG/20.3 ML UDC GT SCH (09:14)
[2019-09-27] MEDS: PANTOPRAZOLE 40 MG VIAL IV SCH (09:14)
[2019-09-27] MEDS: ASCORBIC ACID 500 MG TABLET GT SCH (09:14)
[2019-09-27] MEDS: FAMOTIDINE (20 MG) 20 MG TABLET GT SCH (09:14)
[2019-09-27] MEDS: MULTIVIT W/MINERALS 1 TAB TABLET GT SCH (09:14)
[2019-09-27 12:00] VITALS: BP_SYST 127; BP_DIAS 80; BP_DIAS 88
[2019-09-27 16:00] VITALS: BP 128/84
--- NOTE | 2019-09-27 19:07 | NUR ---
RN ROUNDING NOTES PATIENT CONSENT FORM FOR SERIAL DEBRIDEMENT OF THE SCALP SIGNED OVER THE PHONE BY SISTER (COLETTE ZELAYA). SISTER READ BACK THE CONSENT TO THE WITNESSING NURSE. CONSENT PLACED IN THE CHART. ENDORSED TO TECHNOLOGY SALES REPRESENTATIVE NURSE AND CHARGE NURSE IS AWARE.
--- NOTE | 2019-09-27 19:14 | NUR ---
RN CLOSING NOTES PATIENT REMAINED IN STABLE CONDITION DURING MY SHIFT, NO ACUTE CHANGES TO PATIENT CONDITION DURING THE SHIFT. ALL PATIENT NEEDS MET. ON VENTILATOR WITH SETTINGS ORDERED, NO DISTRESS NOTED AT THE MOMENT. SATURATING WELL @ 100%. VITAL SIGNS WNL. PATIENT CONSENT SIGNED FOR THE SERIA SCALP DEBRIDEMENT AND PLACED IN THE CHART. ALL SCHEDULED MEDICATION GIVEN ORDERED. TF RUNNING, PT TOLERATING WELL. NO RESIDUAL NOTED. CONTACT ISOLATION IS OBSERVED. ALL NEEDS MET, PATIENT KEPT CLEAN AND DRY, WOUND CARE TREATMENT RENDERED ORDERED. SAFETY MAINTAINED, CALL LIGHT WITHIN REACH, ENDORSED TO ROAD OILER NURSE TO CONTINUE CARE.
[2019-09-27 20:00] VITALS: BP 128/89
--- NOTE | 2019-09-27 20:34 | NUR ---
RN OPENING NOTES: RECEIVED PT IN BED, OBTUNDED. ON VENT, TOLERATING SETTINGS WELL.NO SOB , NO DISTRESS NOTEDBREATHING EVEN UNLABORED , ON TELE MONITOR SHOWING SR-ST -100. ON GT FEEDING OF GLUCERNA 1.2 AT 80CC/HR TOLERATING WELL NO RESIDUAL NOTED . HAS DICKSON PICC LINE W/ D5 1/2 RUNNING AT 75ML/HR. HAS MAN, PATENT AND DRAINING. BED IN LOWEST AND LOCKED POSITION, CALL LIGHT WITHIN REACH. WILL CONTINUE TO MONITOR. ON CONTACT ISOLATION ACINETOBACTER SPUTUM ,PRECAUTIONARY MEASURES OBSERVED AT ALL TIMES .KEPT PTS CLEAN DRY AND COMFORTABLE V/S STABLE AFEBRILE.
[2019-09-27] MEDS: SENNOSIDES 8.6 MG TABLET GT SCH (21:05)
[2019-09-28] VITALS: BP 113/69
[2019-09-28] MEDS: ALBUTEROL FS 2.5 MG/0.5 ML VIAL.NEB IH SCH ×4 (01:13→20:24)
[2019-09-28 04:00] VITALS: BP 135/84
--- NOTE | 2019-09-28 05:37 | NUR ---
RT NOTE Pt rec'd trached on [facility] vent on AC mode. Pt shows no signs of resp distress or sob. Trach is patent and secured. Pt sx'd for mod amt of pale yellow secretions. Alarms are set and audible. Vent plugged into red outlet. Ambu bag bedside. Will continue to monitor. Addendum: 09/28/19 at 0537 by NAHUM GUO RT Amended: Links added.
--- NOTE | 2019-09-28 05:45 | NUR ---
AUTOMAT CAR ATTENDANT NOTES PTS REMAINS ON VENTILATOR WELL TOLERATED NO SOB NO DISTRESS NOTED sating 100%, PTS V/S IS STABLE AFEBRILE CONT ON GT FEEDING WELL TOLERATED INFUSING WELL NO RESIDUAL NOTED.ON CONTACT ISOLATION ACINETOBACTER SPUTUM PRECAUTIONARY MEASURES OBSERVED AT ALL TIMES ,ALL NEEDS MEET .KEPT PTS CLEAN DRY AND COMFORTABLE WILL ENDORSE TO RN DAY SHIFT FOR CONTINUITY OF CARE. PTS FOR SERIAL DEBRIDEMENT OF SCALP CONSENT OBTAINED FROM PTS SISTER VALERIA BY DAY SHIFT NURSE.
[2019-09-28 06:48] LABS: BASOPHILS % (AUTO) 0.4 % (0.0-2.0); EOSINOPHILS % (AUTO) 2.6 % (0.0-6.0); HEMATOCRIT 26 % (39-51); HEMOGLOBIN 8.8 g/dL (13.5-17.5); LYMPHOCYTES # (AUTO) 0.8 /CMM (0.8-4.8); LYMPHOCYTES % (AUTO) 12.4 % (20.0-44.0); MEAN CORPUSCULAR HGB CONC 33 g/dl (31.0-36.0); MEAN CORPUSCULAR VOLUME 87 fL (80-96); MONOCYTES # (AUTO) 0.6 /CMM (0.1-1.30); MONOCYTES % (AUTO) 9.3 % (2.0-12.0); NEUTROPHILS % (AUTO) 75.3 % (43.0-81.0); PLATELET COUNT (AUTO) 282 /CMM (150-450); RED BLOOD CELL COUNT(AUTO) 3.05 MIL/uL (4.5-6.0); WHITE BLOOD COUNT (AUTO) 6.6 K/uL (4.3-11.0)
--- NOTE | 2019-09-28 07:37 | NUR ---
RN OPENING NOTES RECEIVED PATIENT RESTING IN BED COMFORTABLY. HE IS OBTUNDED, NON-VERBAL, AND BEDBOUND. HE IS ON MECH VENT VIA PORTEX 7 TRACH, TOLERATING SETTINGS WELL, NO SOB OR RESP DISTRESS NOTED. TELE MONITOR SHOWING SR. PT IS ON CONTACT ISOLATION FOR THE SPUTUM. MAN CATH IS PATENT AND INTACT, DRAINING CLEAR AND YELLOW URINE BY GRAVITY. GTUBE IS PATENT AND INTACT, NO RESIDUALS NOTED. HE IS RECEIVING GLUCERNA AT 50 CC/HR. DICKSON SINGLE LUMEN PICC LINE IS PATENT AND INTACT, INFUSING D5 1/2 NS AT 75 ML/HR. SAFETY MEASURES HAVE BEEN IMPLEMENTED, CALL LIGHT IS WITHIN REACH, BED IS IN LOWEST AND LOCKED POSITION, SIDE RAILS UP X2, WILL CONTINUE TO MONITOR FOR ANY CHANGES.
[2019-09-28 08:00] VITALS: BP 133/90
[2019-09-28] MEDS: CHLORHEXIDINE GLUCONATE 15 ML UDC MM SCH ×2 (08:21→16:44)
[2019-09-28] MEDS: VALPROIC ACID 250 MG/5 ML UDC GT SCH ×3 (08:21→16:44)
[2019-09-28] MEDS: ACETAMINOPHEN 650 MG/20.3 ML UDC GT SCH (08:21)
[2019-09-28] MEDS: MULTIVIT W/MINERALS 1 TAB TABLET GT SCH (08:21)
[2019-09-28] MEDS: PANTOPRAZOLE 40 MG VIAL IV SCH (08:21)
[2019-09-28] MEDS: FAMOTIDINE (20 MG) 20 MG TABLET GT SCH (08:22)
[2019-09-28] MEDS: ASCORBIC ACID 500 MG TABLET GT SCH (08:22)
[2019-09-28] MEDS: LEVETIRACETAM SOL (5 ML) 100 MG/ML UDC GT SCH ×2 (08:22→16:45)
[2019-09-28] MEDS: DOCUSATE SODIUM LIQ 100 MG/10 ML UDC GT SCH (08:22)
[2019-09-28] MEDS: SILVER SULFADIAZINE CREAM 25 GM TUBE TP SCH ×2 (08:23→08:24)
[2019-09-28] MEDS: PROSOURCE / PROSTAT (PYXIS) 30 ML UDC GT SCH ×3 (08:27→16:47)
[2019-09-28] MEDS: GLUCERNA 1.2 1,000 ML BOTTLE NG PRN (10:08)
[2019-09-28 12:00] VITALS: BP 123/80
[2019-09-28] MEDS: IV D5/0.45 NACL 1,000 ML IV PRN (12:06)
--- NOTE | 2019-09-28 15:00 | NUR ---
RN NOTES PATIENT SISTER BROUGHT SUPPLEMENTS THAT SHE WANTS GIVEN TO THE PATIENT. SUPPLEMENTS HAVE BEEN ENTERED INTO MED RECON AND GIVEN TO PHARMACY. SENT MESSAGE TO DR. CURRY TO DO MED RECON, WILL CONTINUE TO MONITOR.
[2019-09-28 16:00] VITALS: BP 132/94
[2019-09-28] MEDS ORDERED: [UNRECOGNIZED DRUG - OTHER] GT (16:03)
[2019-09-28] MEDS ORDERED: [UNRECOGNIZED DRUG - OTHER] GT (16:03)
[2019-09-28] MEDS ORDERED: [UNRECOGNIZED DRUG - OTHER] GT (16:03)
[2019-09-28] MEDS ORDERED: [UNRECOGNIZED DRUG - OTHER] GT (16:03)
[2019-09-28] MEDS ORDERED: [UNRECOGNIZED DRUG - OTHER] (16:03)
[2019-09-28] MEDS ORDERED: [UNRECOGNIZED DRUG - OTHER] GT (16:03)
--- NOTE | 2019-09-28 19:10 | NUR ---
RN CLOSING NOTES PATIENT IS RESTING IN BED COMFORTABLY AT THIS TIME, DOES NOT SHOW ANY S/SX OF RESP DISTRESS OR SOB. HE IS TOLERATING MECH VENT SETTINGS WELL, VSS. PT NEEDS HAVE BEEN MET, VITAL SIGNS ARE STABLE, NO ACUTE CHANGES OCCURRED THROUGHOUT THE SHIFT. SAFETY MEASURES HAVE BEEN IMPLEMENTED, CALL LIGHT IS WITHIN REACH, BED IS IN LOWEST AND LOCKED POSITION, SIDE RAILS UP X2, PT HAS BEEN ENDORSED TO NIGHTSHIFT RN FOR CONTINUITY OF CARE.
--- NOTE | 2019-09-28 19:37 | NUR ---
DIETARY CLERK OPENING NOTES PATIENT RESTING IN BED UPON ARRIVAL. TOLERATING VENT SETTINGS WELL. PATIENT IS OBTUNDED. NO S/S OF ACUTE RESPIRATORY DISTRESS OR PAIN PRESENT. TUBE FEEDING PRESENT WITH GLUCERNA RUNNING AT AT 80 CC/HR. RIGHT UPPER ARM PICC LINE PRESENT, INTACT & PATENT, D5 1/2NS RUNNING AT 75CC/HR. TELE MONITOR READING SINUS TACH, HEART RATE 105. SAFETY MEASURES IN PLACE. BED LOCKED, SIDE RAILS X2, CALL LIGHT WITHIN REACH. WILL CONTINUE TO MONITOR.
[2019-09-28] MEDS: ACETAMINOPHEN 650 MG/20.3 ML UDC PO PRN (19:53)
--- NOTE | 2019-09-28 19:55 | NUR ---
BUS REPAIR SUPERVISOR NOTES PATIENT'S TEMP 101.9. PRN TYLENOL 650MG GIVEN AND COOLING MEASURES INITIATED. WILL CONTINUE TO MONITOR.
[2019-09-28 20:00] VITALS: BP 131/87
[2019-09-28] MEDS: SENNOSIDES 8.6 MG TABLET GT SCH (21:24)
--- NOTE | 2019-09-28 21:52 | NUR ---
ROSTER CLERK NOTES PATIENT'S TEMP 99.5
[2019-09-29] VITALS: BP 142/92
--- NOTE | 2019-09-29 00:25 | NUR ---
RT NOTE Pt rec'd trached on [facility] vent on AC mode. No resp distress or sob noted. Pt sx'd for thick mod amt of pale yellow secretions. Trach is patent and secured. Alarms are set and audible. Vent plugged into red outlet. Ambu bag bedside. Will continue to monitor closely. Addendum: 09/29/19 at 0025 by NAHUM GUO RT Amended: Links added.
[2019-09-29] MEDS: IV D5/0.45 NACL 1,000 ML IV PRN ×2 (01:20→16:32)
[2019-09-29] MEDS: GLUCERNA 1.2 1,000 ML BOTTLE NG PRN ×2 (01:21→18:21)
[2019-09-29] MEDS: ALBUTEROL FS 2.5 MG/0.5 ML VIAL.NEB IH SCH ×5 (01:46→20:31)
[2019-09-29 04:00] VITALS: BP 134/67
[2019-09-29] MEDS: ACETAMINOPHEN 650 MG/20.3 ML UDC PO PRN ×2 (04:34→16:14)
--- NOTE | 2019-09-29 07:31 | NUR ---
RN OPENING NOTES RECEIVED PATIENT RESTING IN BED COMFORTABLY, DOES NOT SHOW ANY S.SX OF DISTRESS OR SOB. PT IS OBTUNDED, NON-VERBAL, AND BEDBOUND. HE IS ON MECH VENT VIA PORTEX 7 TRACH, TOLERATING SETTINGS WELL. TELE MONITOR SHOWING SR WITH HR IN THE 80S. MAN CATH IS PATENT AND INTACT, DRAINING CLEAR AND YELLOW URINE BY GRAVITY. MULTIPLE WOUNDS PRESENT, WILL ADDRESS PER WOUND CARE PLAN. DICKSON SINGLE LUMEN PICC IS PATENT AND INTACT, RUNNING D5 1/2 NS AT 75 ML/HR. GTUBE INTACT, RUNNING GLUCERNA AT 80 ML/HR, NO RESIDUALS NOTED. SAFETY MEASURES HAVE BEEN IMPLEMENTED, CALL LIGHT IS WITHIN REACH, BED IS IN LOWEST AND LOCKED POSITION, SIDE RAILS UP X2, WILL CONTINUE TO MONITOR FOR ANY CHANGES.
[2019-09-29 07:41] LABS: CREATININE 0.6 mg/dL (0.6-1.3); MAGNESIUM 1.7 mg/dL (1.8-2.4); PHOSPHORUS 3.2 mg/dL (2.5-4.9); POTASSIUM 3.8 mmol/L (3.5-5.1)
[2019-09-29 08:00] VITALS: BP 132/88
[2019-09-29] MEDS: PANTOPRAZOLE 40 MG VIAL IV SCH (08:58)
[2019-09-29] MEDS: MULTIVIT W/MINERALS 1 TAB TABLET GT SCH (08:58)
[2019-09-29] MEDS: DOCUSATE SODIUM LIQ 100 MG/10 ML UDC GT SCH (08:58)
[2019-09-29] MEDS: LEVETIRACETAM SOL (5 ML) 100 MG/ML UDC GT SCH ×2 (08:58→16:15)
[2019-09-29] MEDS: VALPROIC ACID 250 MG/5 ML UDC GT SCH ×3 (08:58→16:15)
[2019-09-29] MEDS: ACETAMINOPHEN 650 MG/20.3 ML UDC GT SCH (08:58)
[2019-09-29] MEDS: CHLORHEXIDINE GLUCONATE 15 ML UDC MM SCH ×2 (08:58→16:14)
[2019-09-29] MEDS: FAMOTIDINE (20 MG) 20 MG TABLET GT SCH (08:59)
[2019-09-29] MEDS: ASCORBIC ACID 500 MG TABLET GT SCH (08:59)
[2019-09-29] MEDS: PROSOURCE / PROSTAT (PYXIS) 30 ML UDC GT SCH ×3 (09:02→16:15)
[2019-09-29] MEDS: SILVER SULFADIAZINE CREAM 25 GM TUBE TP SCH ×2 (09:08)
[2019-09-29 09:29] LABS: BASOPHILS % (AUTO) 0.1 % (0.0-2.0); EOSINOPHILS % (AUTO) 1.4 % (0.0-6.0); HEMATOCRIT 28 % (39-51); HEMOGLOBIN 9.4 g/dL (13.5-17.5); LYMPHOCYTES % (AUTO) 14.1 % (20.0-44.0); MEAN CORPUSCULAR HGB CONC 33 g/dl (31.0-36.0); MEAN CORPUSCULAR VOLUME 87 fL (80-96); MONOCYTES # (AUTO) 0.9 /CMM (0.1-1.30); MONOCYTES % (AUTO) 12.6 % (2.0-12.0); NEUTROPHILS # (AUTO) 4.9 /CMM (1.8-8.9); NEUTROPHILS % (AUTO) 71.8 % (43.0-81.0); PLATELET COUNT (AUTO) 269 /CMM (150-450); RED BLOOD CELL COUNT(AUTO) 3.24 MIL/uL (4.5-6.0); WHITE BLOOD COUNT (AUTO) 6.8 K/uL (4.3-11.0)
[2019-09-29 12:00] VITALS: BP 124/87
[2019-09-29] MEDS: Magnesium 1GM/D5W 100ML PREMIX 100 ML IV SCH ×2 (12:07→13:10)
[2019-09-29 12:49] LABS: APPEARANCE,URINE SL CLOUDY (CLEAR); BILIRUBIN,URINE NEGATIVE (NEGATIVE); BLOOD, URINE LARGE Ery/uL (NEGATIVE); COLOR,URINE YELLOW (YELLOW); KETONES,URINE NEGATIVE (NEGATIVE); LEUKOCYTE ESTERASE ,URINE NEGATIVE (NEGATIVE); NITRITE, URINE NEGATIVE (NEGATIVE); PROTEIN,URINE TRACE mg/dl (NEGATIVE); UGLUCOSE NEGATIVE (NEGATIVE)
[2019-09-29 13:45] LABS: BACTERIA,URINE None seen /HPF (None Seen); RBC,URINE TOO NUMEROUS TO COUN /HPF (0-2); SQUAMOUS EPITHELIAL CELL,UR Few /HPF (None Seen); WBC,URINE 0-2 /HPF (0-3)
[2019-09-29 16:00] VITALS: BP_SYST 111; BP_SYST 130; BP_DIAS 69; BP_DIAS 91
--- NOTE | 2019-09-29 19:10 | NUR ---
LABORATORY MONITOR NOTES PATIENT IS IN BED RESTING OBTUNDED WITH HOB ELEVATED. ON VENT AC SETTINGS WELL TOLERATED BY PTS NO SOB NO DISTRESS NOTED ,BREATHING EVEN AND UNLABORED .ON TELE MONITOR CURRENT READING SR 90'S RIGHT UPPER ARM PICC LINE KEPT PATENT.WITH ONGOING D5 1/2 NS @75CC/HR INFUSING WELL, PT ON GLUCERNA @80CC/HR VIA GTUBE, PATENT NO LEAKAGE, RESIDUAL CHECKED @ 20CC PATIENT IS KEPT CLEAN, DRY, AND COMFORTABLE. F/C INTACT AND PATENT DRAINING WITH YELLOWISH URINE OUTPUT SAFETY MEASURED MAINTAINED, BED ON LOWEST POSSIBLE POSITION, SIDE RAILS UP X3, CALL LIGHT WITHIN REACH WILL CONT. TO MONITOR
--- NOTE | 2019-09-29 19:19 | NUR ---
RN CLOSING NOTES PATIENT IS RESTING IN BED COMFORTABLY AT THIS TIME, DOES NOT SHOW ANY S.SX OF RESP DISTRESS OR SOB PRESENT. HE IS ON MECH VENT, TOLERATING SETTINGS WELL. WOUND CARE HAS BEEN DONE. CONTACT ISO HAS BEEN IMPLEMENTED AND ENFORCED. SEIZURE PRECAUTIONS HAVE BEEN IMPLEMENTED. PT NEEDS HAVE BEEN MET, VITAL SIGNS ARE STABLE, NO ACUTE CHANGES OCCURRED THROUGHOUT THE SHIFT. SAFETY MEASURES HAVE BEEN IMPLEMENTED, CALL LIGHT IS WITHIN REACH, BED IS IN LOWEST AND LOCKED POSITION, SIDE RAILS UP X2, PT HAS BEEN ENDORSED TO NIGHTSHIFT RN FOR MOISES.
[2019-09-29 20:00] VITALS: BP 128/78
[2019-09-29] MEDS: SENNOSIDES 8.6 MG TABLET GT SCH (21:25)
[2019-09-30] VITALS (8 sets, daily range): BP systolic 128–144; BP diastolic 64–97
[2019-09-30] MEDS: ACETAMINOPHEN 650 MG/20.3 ML UDC PO PRN (00:25)
[2019-09-30] MEDS: ALBUTEROL FS 2.5 MG/0.5 ML VIAL.NEB IH SCH ×3 (02:10→14:12)
[2019-09-30] MEDS: IV D5/0.45 NACL 1,000 ML IV PRN (06:39)
[2019-09-30] MEDS: GLUCERNA 1.2 1,000 ML BOTTLE NG PRN (06:45)
[2019-09-30 06:46] LABS: CALCIUM, SERUM 8.4 mg/dL (8.5-10.1); CREATININE 0.6 mg/dL (0.6-1.3); PHOSPHORUS 3.2 mg/dL (2.5-4.9); POTASSIUM 3.6 mmol/L (3.5-5.1)
--- NOTE | 2019-09-30 07:24 | NUR ---
CONTRACT ADMINISTRATOR OPENING NOTE PT WAS RECEIVED IN BED AT LOWEST AND LOCKED POSITION WITH SIDE RAILS UPX2, OBTUNDED ON VENT WITH VENT SETTINGS NOTED, ON TELE MONITOR SHOWING ST 100'S, S/P SCALP DEBRIDEMENT, TUBE FEEDING RUNNING, DICKSON PICC IS PATENT AND INTACT, SAFETY PRECAUTIONS IN PLACE, CALL LIGHT IN REACH, WILL MONITOR ACCORDINGLY
--- NOTE | 2019-09-30 07:33 | NUR ---
ANALYTICAL LABORATORY TECHNICIAN CLOSING NOTES PATIENT TOLERATING VENT SETTING WELL; SPO2 100%; BREATHING EVEN AND UNLABORED. TELE MONITOR READING SINUS RHYTHM, HEART RATE 100. PATIENT TOLERATING TUBE FEEDING WELL; GLUCERNA 1.2 RUNNING AT 80 ML/HR. RIGHT UPPER ARM PICC LINE INTACT & PATENT WITH D51/2NS RUNNING AT 75 ML/HR. MAN CATH DRAINING CLEAR YELLOW URINE. SAFETY MEASURES IN PLACE. BED LOCKED, SIDE RAILS X3 & PADDED FOR SEIZURE PRECAUTION, CALL LIGHT WITHIN REACH. WILL ENDORSE TO DAY SHIFT NURSE TO FOLLOW PLAN OF CARE.
[2019-09-30] MEDS: ACETAMINOPHEN 650 MG/20.3 ML UDC GT SCH (09:01)
[2019-09-30] MEDS: MULTIVIT W/MINERALS 1 TAB TABLET GT SCH (09:01)
[2019-09-30] MEDS: VALPROIC ACID 250 MG/5 ML UDC GT SCH ×3 (09:01→16:46)
[2019-09-30] MEDS: FAMOTIDINE (20 MG) 20 MG TABLET GT SCH (09:01)
[2019-09-30] MEDS: ASCORBIC ACID 500 MG TABLET GT SCH (09:01)
[2019-09-30] MEDS: DOCUSATE SODIUM LIQ 100 MG/10 ML UDC GT SCH (09:01)
[2019-09-30] MEDS: PANTOPRAZOLE 40 MG VIAL IV SCH (09:01)
[2019-09-30] MEDS: LEVETIRACETAM SOL (5 ML) 100 MG/ML UDC GT SCH ×2 (09:01→16:46)
[2019-09-30] MEDS: CHLORHEXIDINE GLUCONATE 15 ML UDC MM SCH ×2 (09:01→16:46)
[2019-09-30] MEDS: SILVER SULFADIAZINE CREAM 25 GM TUBE TP SCH ×2 (09:02)
[2019-09-30] MEDS: PROSOURCE / PROSTAT (PYXIS) 30 ML UDC GT SCH ×3 (09:02→16:46)
[2019-09-30 11:17] LABS: BASOPHILS % (AUTO) 0.3 % (0.0-2.0); EOSINOPHILS % (AUTO) 1.4 % (0.0-6.0); HEMATOCRIT 26 % (39-51); HEMOGLOBIN 8.7 g/dL (13.5-17.5); LYMPHOCYTES # (AUTO) 1.2 /CMM (0.8-4.8); LYMPHOCYTES % (AUTO) 16.6 % (20.0-44.0); MEAN CORPUSCULAR HGB CONC 33 g/dl (31.0-36.0); MEAN CORPUSCULAR VOLUME 86 fL (80-96); MONOCYTES # (AUTO) 0.9 /CMM (0.1-1.30); MONOCYTES % (AUTO) 12.1 % (2.0-12.0); NEUTROPHILS % (AUTO) 69.6 % (43.0-81.0); PLATELET COUNT (AUTO) 274 /CMM (150-450); RED BLOOD CELL COUNT(AUTO) 3.01 MIL/uL (4.5-6.0); WHITE BLOOD COUNT (AUTO) 7.2 K/uL (4.3-11.0)
[2019-09-30] MEDS ORDERED: FEE PK DOSING 1 MIN EA MC ONE (12:16)
[2019-09-30] MEDS ORDERED: VANC1.5P20 IV (12:41)
[2019-09-30] MEDS ORDERED: Silver Sulfadiazine Cream TP (12:41)
[2019-09-30] MEDS ORDERED: RXVAN XX (12:41)
[2019-09-30] MEDS ORDERED: VANCOMYCIN 1.25 GM in IV D5W 250 ML IV SCH (13:00)
--- NOTE | 2019-09-30 15:16 | NUR ---
RN NOTE REPORT GIVEN TO LUIS MARTINEZ AT [facility] AT THIS TIME
--- NOTE | 2019-09-30 15:25 | NUR ---
RN NOTE PHOTO TAKEN AND PLACED IN THE CHART
[2019-09-30] MEDS: LORAZEPAM INJ 2 MG/ML VIAL IV PRN (17:25)
--- NOTE | 2019-09-30 17:25 | NUR ---
JUAN NOTE ATIVAN GIVEN AT THIS TIME DUE TO PT BP OF 151/103 BEFORE D/C. MEDICATION WAS ADMIN AND BP WAS NOTED TO BE 146/93. PER EMT AND FACILITY THAT IS ACCPETABLE AND PT IS CLEAR FOR DISCHARGE Addendum: 09/30/19 at 1858 by OSCAR GARBER RN 1 MG GIVEN AND 1 MG WASTED VERIFIED WITH JUAN FINE
--- NOTE | 2019-09-30 17:29 | NUR ---
DISCHARGE NOTE PT WAS D/C AT THIS TIME IN MEDICALLY STABLE CONDITION BACK TO [facility] WHERE REPORT WAS GIVEN TO JUAN SMITH. ID BAND WERE REMOVED, PT LEFT WITH DICKSON PICC LINE IN PLACE, LEFT WITH MAN IN PLACE WELL. PHOTOS OF SKIN WERE TAKEN AND PLACED IN THE CHART. ALL D/C PAPERWORK, EXITCARE, AND BELONGINGS LIST WERE SIGNED BY JUAN NUÑEZ PAPERWORK WAS HANDED TO EMT CREW. HOME MEDICATIONS WERE RETURNED TO PT AND HANDED TO THE EMT CREW. ALL NEEDS WERE ATTENDED TO DURING HIS STAY.
== END 2019-09-30 17:34 | DRG 853 ==
LOC: ER 22:00 → TELE-TD 09-21 01:08 → TELE1 09-21 02:30
PROVIDERS: ADMIT Internal Medicine; ATTEND Nurse Practitioner Acute Care
PROC: 30233N1 Transfusion of Nonautologous Red Blood Cells into Peripheral Vein, Percutaneous Approach (ICD-10-PCS; 2019-09-20)
PROC: 5A1955Z Respiratory Ventilation, Greater than 96 Consecutive Hours (ICD-10-PCS; 2019-09-21)
PROC: B548ZZA Ultrasonography of Superior Vena Cava, Guidance (ICD-10-PCS; 2019-09-22)
PROC: 02HV33Z Insertion of Infusion Device into Superior Vena Cava, Percutaneous Approach (ICD-10-PCS; 2019-09-22)
PROC: 0JBR0ZZ Excision of Left Foot Subcutaneous Tissue and Fascia, Open Approach (ICD-10-PCS; principal; 2019-09-24)
PROC: 0JBQ0ZZ Excision of Right Foot Subcutaneous Tissue and Fascia, Open Approach (ICD-10-PCS; principal; 2019-09-24)
PROC: 0KBP0ZZ Excision of Left Hip Muscle, Open Approach (ICD-10-PCS; principal; 2019-09-24)
PROC: 0KBN0ZZ Excision of Right Hip Muscle, Open Approach (ICD-10-PCS; principal; 2019-09-24)
PROC: 0KB00ZZ Excision of Head Muscle, Open Approach (ICD-10-PCS; 2019-09-28)
DX: A41.9 Sepsis, unspecified organism (principal); L89.154 Pressure ulcer of sacral region, stage 4; G93.41 Metabolic encephalopathy; N17.0 Acute kidney failure with tubular necrosis; J96.21 Acute and chronic respiratory failure with hypoxia; R53.2 Functional quadriplegia; J18.9 Pneumonia, unspecified organism; E87.0 Hyperosmolality and hypernatremia; D68.59 Other primary thrombophilia; Z99.11 Dependence on respirator [ventilator] status; L97.419 Non-pressure chronic ulcer of right heel and midfoot with unspecified severity; L97.429 Non-pressure chronic ulcer of left heel and midfoot with unspecified severity; E87.1 Hypo-osmolality and hyponatremia; J98.11 Atelectasis; L03.90 Cellulitis, unspecified; D64.9 Anemia, unspecified; I10 Essential (primary) hypertension; E11.9 Type 2 diabetes mellitus without complications; J44.9 Chronic obstructive pulmonary disease, unspecified; E11.621 Type 2 diabetes mellitus with foot ulcer; M20.42 Other hammer toe(s) (acquired), left foot; E11.51 Type 2 diabetes mellitus with diabetic peripheral angiopathy without gangrene; E11.622 Type 2 diabetes mellitus with other skin ulcer; E78.5 Hyperlipidemia, unspecified; G40.909 Epilepsy, unspecified, not intractable, without status epilepticus; Z74.01 Bed confinement status; Z93.1 Gastrostomy status; Z93.0 Tracheostomy status; Z66 Do not resuscitate; Z86.73 Personal history of transient ischemic attack (TIA), and cerebral infarction without residual deficits; R13.10 Dysphagia, unspecified; M62.562 Muscle wasting and atrophy, not elsewhere classified, left lower leg; M62.561 Muscle wasting and atrophy, not elsewhere classified, right lower leg; L97.519 Non-pressure chronic ulcer of other part of right foot with unspecified severity; E86.1 Hypovolemia; M20.41 Other hammer toe(s) (acquired), right foot; Y95 Nosocomial condition; I70.0 Atherosclerosis of aorta
CPT/HCPCS: 31720; 36415; 71045-TC; 72220-TC; 80048-TC; 80053-TC; 80061-TC; 80076-TC; 80202-TC; 81000-TC; 82272-TC; 83605-TC; 83735-TC; 84100-TC; 84443-TC; 85025-TC; 85730-TC; 86850-TC; 86921-TC; 87040-TC; 87070-TC; 87081-TC; 87086-TC; 87186-TC; 94002-TC; 94003-TC; 94640-TC; 94760-TC; 94762-TC; A4623; A6253; A6403; A7526; C9113; G0378; J1953; J2060; J2543; J3370; J3475; J3490; J7030; J7040; J7042; J7050; J7060; P9016-BL

== ENCOUNTER 2020-10-13 22:30 | Emergency (ER) | payer BC ==
[~2020-10-13] VITALS: Ht 188 cm; Wt 91.2 kg
[~2020-10-13 22:30] MED LIST: ACET-2030 GT; ACET-868 GT; ACET325T53 GT; ALBU2.5V13 IH; ALBU2.5V38 IH; AMIN887L GT; AMLO10TA4 GT; ASCO500C17 GT; BISA10SU11 RC; CHLO473M3 MM; CRAN3875 GT; DOCU-141 GT; FAMO20TA8 GT; INSU100V39 SQ; LEVE100S GT; MAGN400O6 GT; MERO500V23 IV; MULT-439 GT; NA P133E RC; NUT.237L31; NUTR1PAC14 GT; POLY17PO4 GT; RXVAN XX; SENN-261 GT; Silver Sulfadiazine Cream TP; VALP250S4 GT; VANC1.5P20 IV; [UNRECOGNIZED DRUG - OTHER]; [UNRECOGNIZED DRUG - OTHER] GT; [UNRECOGNIZED DRUG - OTHER] GT; [UNRECOGNIZED DRUG - OTHER] GT; [UNRECOGNIZED DRUG - OTHER] GT; [UNRECOGNIZED DRUG - OTHER] GT
--- NOTE | 2020-10-13 22:32 | NUR ---
PT KARRIE FROM [facility] FOR SOB AND TACHYCARDIA. PT PLACED IN BED 8 ON JEWELRY CASTING MODEL MAKER APPRENTICE AND PULSE OX. PT ANGIE DEP, RT AT BEDSIDE TO PLACE PT ON VENT. PT NOTED TO BE IN A FIB RVR UPON ARRIVAL. AWAITING MD FOR EVAL AND ORDES.
--- NOTE | 2020-10-13 22:45 | NUR ---
RT NOTE LATE ENTRY PT REC'D ON [facility] VENT ON AC MODE SETTINGS GIVEN FROM [facility]PT. PT SHOWED SIGNS OF RESP DISTRESS. STAT ABG TO BE TAKEN. PT SX'D FOR THICK MOD AMT OF PALE YELLOW SECRETIONS. ALARMS ARE SET AND AUDIBLE. VENT PLUGEED INTO RED OUTLET. AMBU BAG BEDSIDE. WILL CONTINUE TO MONITOR CLOSELY. Addendum: 10/13/20 at 2338 by NAHUM GUO RT Amended: Links added.
[2020-10-13] MEDS ORDERED: IV NS 0.9% 1,000 ML BAG IV ONE (23:00)
--- NOTE | 2020-10-13 23:11 | NUR ---
PT NOTED TO BE VEE CUEVAS MD AWARE.
[2020-10-13 23:15] VITALS: BP 134/72
--- NOTE | 2020-10-13 23:19 | NUR ---
TIME OF 9052
[2020-10-13 23:22] LABS: BASOPHILS % (AUTO) 0.2 % (0.0-2.0); HEMATOCRIT 26 % (39-51); HEMOGLOBIN 7.9 g/dL (13.5-17.5); LYMPHOCYTES # (AUTO) 2.6 /CMM (0.8-4.8); LYMPHOCYTES % (AUTO) 10.2 % (20.0-44.0); MEAN CORPUSCULAR HGB CONC 30 g/dl (31.0-36.0); MEAN CORPUSCULAR VOLUME 88 fL (80-96); MONOCYTES % (AUTO) 11.6 % (2.0-12.0); NEUTROPHILS # (AUTO) 19.9 /CMM (1.8-8.9); PLATELET COUNT (AUTO) 316 /CMM (150-450); RED BLOOD CELL COUNT(AUTO) 2.96 MIL/uL (4.5-6.0); WHITE BLOOD COUNT (AUTO) 25.5 K/uL (4.3-11.0)
[2020-10-13] MEDS ORDERED: DILTIAZEM HCL 50 MG IV IV ONE (23:30)
--- NOTE | 2020-10-13 23:38 | NUR ---
SPOKE TO THE PT'S SISTER (VALERIA) REGARDING PASSING OF THE PT.
--- NOTE | 2020-10-13 23:43 | NUR ---
PAGED DR LANG TO REPORT THE
[2020-10-13 23:45] LABS: CALCIUM, SERUM 8.7 mg/dL (8.5-10.1); CARBON DIOXIDE 14 mmol/L (21-32); CHLORIDE 98 mmol/L (98-107); CREATININE 3.1 mg/dL (0.6-1.3); GLUCOSE 87 mg/dL (74-106); SODIUM SERUM 140 mmol/L (136-145); UREA NITROGEN, BLOOD 63 mg/dL (7-18)
--- NOTE | 2020-10-13 23:51 | NUR ---
DR LANG CALLED BACK. MADE AWARE OF PT'S EXPIRATION
--- NOTE | 2020-10-13 23:58 | NUR ---
SPOKE TO [facility], STATED PT IS NOT A CANDIDATE REF NUMBER [id number] Addendum: 10/14/20 at 0019 by KIKA SPOKE TO HARJIT
[2020-10-14 00:01] LABS: ALKALINE PHOSPHATASE 82 U/L (46-116); B-TYPE NATRIURETIC PEPTIDE 8638 PG/ML (0-125); BILIRUBIN,DIRECT 0.4 mg/dL (0.0-0.2); BILIRUBIN,TOTAL 0.8 mg/dL (0.2-1.0); TOTAL PROTEIN, SERUM 8.4 g/dL (6.4-8.2)
--- NOTE | 2020-10-14 00:17 | NUR ---
CALLED [facility], SPOKE TO ARIADNA, WAS TOLD NOT A CASE.
--- NOTE | 2020-10-14 00:19 | NUR ---
Chai ricketts in [facility] - 10/14/20 at 0019 by KIKA SPOKE TO HARJIT
[2020-10-14 00:37] LABS: POTASSIUM 6.5 mmol/L (3.5-5.1)
[2020-10-14 02:01] LABS: ALANINE AMINOTRANSFERASE 4283 U/L (12-78)
--- NOTE | 2020-10-14 02:04 | NUR ---
PT TAGGED, PLACED IN BODY BAG. SECURITY CALLED TO TRANSFER PT TO [facility].
--- NOTE | 2020-10-14 02:14 | NUR ---
PT TRANSFERED TO [facility]
[2020-10-14 02:22] LABS: ASPARTATE AMINOTRANSFERASE 4856 U/L (15-37)
== END 2020-10-14 02:18 | disposition expired ==
LOC: ER 22:32
DX: I46.9 Cardiac arrest, cause unspecified (principal); R00.0 Tachycardia, unspecified; I10 Essential (primary) hypertension; E11.9 Type 2 diabetes mellitus without complications; Z79.899 Other long term (current) drug therapy; Z79.4 Long term (current) use of insulin; Z87.820 Personal history of traumatic brain injury
CPT/HCPCS: 36415; 80048-TC; 80076-TC; 83605-TC; 83880; 84484-TC; 85025-TC; 85730-TC; 87040-TC; 87086-TC